=== PATIENT | male | born 1955 | race Caucasian/White ===

== ENCOUNTER 2021-06-11 09:38 | Emergency (ER) | payer MEDICARE ==
[~2021-06-11] VITALS: Ht 182.9 cm; Wt 98.0 kg
[2021-06-11] MEDS ORDERED: IOHEXOL 350 MG/ML 100 ML VIAL. IV ONE (10:00)
[2021-06-11 10:03] LABS: BASO # 0.1 x10^3/uL (0.0-0.2); BASO % 0 % (0-3); EOS # 0.5 x10^3/uL (0.0-0.7); EOS % 3 % (0-3); HEMATOCRIT 50.2 % (39.0-53.0); LYMPH # 4.3 x10^3/uL (1.0-4.8); LYMPH % 27 % (24-48); MEAN CORPUSCULAR HEMOGLOBIN 27 pg (25-35); MEAN CORPUSCULAR HGB CONC 32 g/dL (31-37); MEAN CORPUSCULAR VOLUME 84 fL (79-100); MONO # 1.3 x10^3/uL (0.0-1.1); MONO % 8 % (0-9); NEUT # 9.7 x10^3uL (1.8-7.7); NEUT % 61 % (31-73); PLATELET COUNT 141 x10^3/uL (140-400); RED BLOOD COUNT 5.96 x10^6/uL (4.30-5.70); WHITE BLOOD COUNT 15.8 x10^3/uL (4.0-11.0)
[2021-06-11] MEDS ORDERED: HEPARIN for IV BOLUS 10,000 UNIT/10 ML VIAL. IV ONE (10:15)
[2021-06-11] MEDS ORDERED: HEPARIN 25,000UTS/250ML PREMIX 250 ML IV PRN (10:15)
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
[2021-06-11 10:31] LABS: ALBUMIN 3.1 g/dL (3.4-5.0); ALBUMIN/GLOBULIN RATIO 0.7 (1.0-1.7); CALCIUM 8.2 mg/dL (8.5-10.1); CREATININE 1.6 mg/dL (0.7-1.3); GFR 43.9; MAGNESIUM 2.7 mg/dL (1.8-2.4); PHOSPHORUS 4.6 mg/dL (2.6-4.7); TOTAL BILIRUBIN 0.9 mg/dL (0.2-1.0); TOTAL PROTEIN 7.8 g/dL (6.4-8.2)
[2021-06-11 10:32] LABS: POTASSIUM 2.8 mmol/L (3.5-5.1)
--- NOTE | 2021-06-11 10:33 | RAD ---
EXAMINATION: CTA CHEST CLINICAL HISTORY: Collapse, short of breath, lethargic Technique: Spiral CT acquisition of the chest from the thoracic inlet to the upper abdomen following IV contrast with coronal and sagittal reformatted images also provided for review. 3D maximum intensi ty projection images also performed. CT Dose Reduction Employed: One or more of the following individualized dose reduction techniques wer e utilized for this examination: 1. Automated exposure control 2. Adjustment of the mA and/or kV ac cording to patient size 3. Use of iterative reconstruction technique. Comparison: None FINDINGS: Pulmonary Vasculature: Extensive pulmonary emboli involving the bilateral distal main, lobar, and mul tiple segmental and subsegmental pulmonary arteries. Lung Parenchyma, Pleura, and Airways: No focal consolidation. Mild dependent subsegmental atelectasis bilaterally. Predominantly paraseptal emphysematous changes in the upper lobes. 5 mm solid pulmonary nodule in the superolateral left lower lobe (series 4 image 93). No pleural effusion. Central airway s patent. Lower Neck, Lymph Nodes, and Mediastinum: Visualized thyroid gland within normal limits. Multiple pro minent but nonenlarged mediastinal lymph nodes, likely reactive. Heart, Pericardium, and Thoracic Vessels: Normal heart size with mild to moderate right heart strain. Aortic atherosclerotic calcification without aneurysm. Coronary atherosclerotic calcification, incom pletely evaluated. Bones and Soft Tissues: No evidence of acute osseous abnormality. Upper Abdomen: 4 x 4 x 5 cm subcapsular circumscribed hypodense lesion in the posterior inferior righ t hepatic lobe, likely a cyst. Additional 1.4 cm hypodense lesion along the gallbladder fossa may rep resent an additional cyst or less likely focal steatosis. IMPRESSION: Extensive bilateral pulmonary emboli as described with mild to moderate right heart strain. 5 mm pulmonary nodule in the left lower lobe, recommend correlation for risk factors for malignancy a nd consider optional CT chest in 12 months to evaluate stability if risk factors present. Emphysema. FOR INTERNAL CODING PURPOSES Critical result: Findings discussed with HOOD NASH MD at 06/11/2021 10:17 AM. RESULT CODE: (C) Electronically signed by: Gordo Puga DO (06/11/2021 10:31 AM) [facility]
[2021-06-11 10:39] LABS: % ATYL 25 % (0-0); % BANDS 11 % (0-9); % EOS 2 % (0-5); % LYMPHS 4 % (24-48); % MONOS 8 % (0-10); % SEGS 50 % (35-66)
[2021-06-11 10:41] LABS: PLT ESTIMATE ADEQUATE (ADEQUATE)
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
[2021-06-11] MEDS ORDERED: IV RINGERS SOLUTION,LACTATED 1,000 ML IV ONE ×2 (11:00)
[2021-06-11] MEDS: POTASSIUM CHLORIDE 20MEQ 100 ML IV SCH ×2 (11:10→12:10)
[2021-06-11] MEDS ORDERED: PIPERACILLIN/TAZOBACTAM 3.375 GM in IV NORMAL SALINE 50ML 50 ML IV ONE (11:15)
[2021-06-11 11:16] LABS: BGAS PH 7.37 (7.35-7.46)
[2021-06-11] MEDS ORDERED: PIPERACILLIN/TAZOBACTAM 3.375 GM VIAL IV ONE (12:07)
[2021-06-11] MEDS ORDERED: IV NORMAL SALINE 50ML 50 ML ONE (12:07)
[2021-06-11] MEDS ORDERED: ENOXAPARIN ** NOTE DOSE ** SYRINGE SQ ONE (12:15)
[2021-06-11 12:18] VITALS: BP 111/82
--- NOTE | 2021-06-12 14:03 | EKG ---
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
== END 2021-06-11 12:54 | disposition short-term general hospital (02) ==
LOC: ER 09:38
DX: I26.99 Other pulmonary embolism without acute cor pulmonale (principal); E87.6 Hypokalemia; F17.200 Nicotine dependence, unspecified, uncomplicated
CPT/HCPCS: 36415; 70450; 71275; 72125; 80053; 82803; 83605; 83735; 83880; 84100; 84484; 85007; 85025; 93005; 96365; 96366; 96372; 96376; 99285; G0480; J1644; J1650; J2543; J3480; J7120; Q9967